=== PATIENT | male | born 1965 | race Caucasian/White ===

== ENCOUNTER 2019-07-22 14:12 | Emergency (ER) | payer OTHER ==
[~2019-07-22] VITALS: Ht 177.8 cm; Wt 83.9 kg
[2019-07-22] MEDS ORDERED: TRICOR145 MG PO (14:19)
[2019-07-22] MEDS ORDERED: ZOCOR20 MG PO (14:19)
[2019-07-22] MEDS ORDERED: LISINOPRIL10 MG PO (14:19)
[2019-07-22 16:29] VITALS: BP 117/79
== END 2019-07-22 16:29 | disposition home or self-care (01) ==
LOC: ER 14:12
DX: T63.441A Toxic effect of venom of bees, accidental (unintentional), initial encounter (principal); F17.210 Nicotine dependence, cigarettes, uncomplicated; I10 Essential (primary) hypertension; E78.00 Pure hypercholesterolemia, unspecified